=== PATIENT | male | born 1950 | race Caucasian/White ===

== ENCOUNTER 2017-01-18 08:59 | Day surgery (SDC) | payer BC, MEDICARE ==
[~2017-01-18] VITALS: Ht 193 cm; Wt 97.3 kg
[~2017-01-18 08:59] MED LIST: ASPI-586 PO; ATOR20TA PO; GLUC-113 PO; LACTATED RINGERS 1,000 ML IV SCH; LIDOCAINE/EPINEPHRINE 1%-1:100,000 (XYLOCAINE) 20ML VIAL ONE; LISI5TAB14 PO; METF500T4 PO; NAPR220T76 PO; OMEP20TA33 PO; SODIUM CHLORIDE FLUSH 3 ML SYR IV SCH; ceFAZolin 2,000 MG in SODIUM CHLORIDE VIAL (PF) 20 ML IV SCH
--- OUTSIDE RECORDS SUMMARY | 2017-01-18 09:06 | XMS REPORT ---
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 Info Not Available Non Drug Allergy Problems Problem Type Condition Code Onset Dates Condition Status Problem Dyslipidemia E78.5 Active Problem FH ischemic heart disease Z82.49 Active Problem ABARCA (dyspnea on exertion) R06.09 Active Assessment FH ischemic heart disease Z82.49 Active Assessment ABARCA (dyspnea on exertion) R06.09 Active Assessment Dyslipidemia E78.5 Active Medications Medication Code System Code Instructions Start Date End Date Status Dosage Aspir-81 [facility] [address]-98 81 MG Orally Once a day 1 tablet Vitamin B 12 [facility] [address] Orally 1 qd 2000mcg Prilosec OTC [facility] [address] 20 MG Orally Once a day 1/2 tablets CoQ-10 [facility] [address] 400 MG Orally Once a day 1 capsule with a meal Metformin HCl [facility] [address]-02 500 MG Orally Twice a day 1 tablet with meals Atorvastatin Calcium [facility] [address]-06 80 MG Orally Once a day 1/ 2 tablet Lipo-Flavonoid Plus NDC 0 1 qd not defined Glucosamine Chondroitin [facility] [address] Orally qd 1 tablet I Caps NDC 0 qd 1 capsule Procedures Procedure Coding System Code Date Office Consultation Level 3 CPT-4 27945 Jun 05, 2016 Vital Signs Date/Time: Jun 05, 2016 BMI 25.44 Index Weight 209 lbs Height 76 in Cardiac Monitoring Heart Rate 67 /min Oximetry 98% % Blood Pressure Diastolic 80 mm Hg Blood Pressure Systolic 130 mm Hg Results No Known Results Summary Purpose [employer] Submission
[2017-01-18 09:10] VITALS: BP 156/89
[2017-01-18] MEDS ORDERED: PROPOFOL 20 ML IV ONE (10:21)
[2017-01-18] MEDS ORDERED: ALFENTANIL 500 MCG/ML (ALFENTA) 5 ML AMP IV ONE ×2 (10:22)
[2017-01-18] MEDS ORDERED: MIDAZOLAM 2 MG/2 ML (VERSED) VIAL ONE (10:22)
[2017-01-18] MEDS ORDERED: METHYLENE BLUE 0.5% 50 MG/10 ML VIAL ONE (10:26)
[2017-01-18 12:07] VITALS: BP 145/89
[2017-01-18] MEDS ORDERED: METOCLOPRAMIDE 10 MG/2 ML (REGLAN) VIAL IV PRN (12:35)
[2017-01-18] MEDS ORDERED: ONDANSETRON 2 MG/ML (Z0FRAN) 2 ML VIAL IV PRN (12:35)
[2017-01-18] MEDS ORDERED: KETOROLAC 30 MG/ML (TORADOL) 1 ML VIAL IV PRN (12:35)
[2017-01-18] MEDS ORDERED: morphine INJ 4 MG/ML 1 ML SYRINGE IV PRN (12:35)
[2017-01-18 12:40] VITALS: BP 130/78
[2017-01-18 13:12] VITALS: BP 139/79
--- NOTE | 2017-01-18 14:48 | OPERATIVE REPORT ---
DATE OF OPERATION: 01/18/2017 PRE-OPERATIVE DIAGNOSIS: Malignant melanoma, left lower extremity POST-OPERATIVE DIAGNOSIS: Malignant melanoma, left lower extremity OPERATIVE PROCEDURE: 1. Left inguinal sentinel lymph node biopsy. 2. Wide local excision, left lower extremity melanoma. SURGEON: Guanakito Busby MD [employer]CR[employer]ET UNLOADER: LORY Dennis ANESTHESIA: Monitored anesthesia care with local INDICATIONS: The patient is a 66-year-old referred by Dr. Gonzalez after a recent biopsy of a skin lesion on his lateral left knee revealed a 0.8 mm melanoma. Wide local excision along with sentinel node biopsy was recommended and he presents today for this procedure. DESCRIPTION OF PROCEDURE: The patient was informed of the risks and benefits and agreed to proceed. He traveled to [place] for the sentinel node injection and returned for the procedure. He was administered preoperative IV antibiotics and taken to the operating room. He was laid supine on a standard operating table and administered IV sedation. When properly sedated, approximately 4 mL of methylene blue was injected in the skin around the biopsy site of his left lateral knee where the sutures were still intact. The area was massaged for 5 minutes to advance the dye through the lymphatics. The leg was then prepped and draped in the standard sterile fashion from below the knee up to above the groin. The Neoprobe was used to localize the highest activity in the left groin. This area was marked and then 1% lidocaine with epinephrine was injected in the skin. A slightly oblique incision was made measuring about 4 cm in length over that area. Sharp and blunt dissection was carried forth down to the underlying sentinel lymph node, which could be easily seen with the blue dye in it. Small lymphatic vessels were controlled with hemoclips and the node was dissected out. The lymphatic vessel at the inferior aspect was clamped and the node was removed and sent pathology. It was checked for its radioactivity prior to sitting it off. The lymphatic vessel was tied with 3-0 Vicryl. There was no other activity within the groin that was within 10% of the sentinel node. The wound was hemostatic. The subcutaneous tissue was reapproximated with interrupted 3-0 Vicryl and the skin was closed with subcuticular 4-0 Monocryl. Attention was then turned to the wide local excision. The skin was marked around the melanoma site to excise to 1 cm margins anteriorly and posteriorly with a vertical elliptical excision, which measured 2 cm x 6 cm. Lidocaine was injected in the skin below and around the excision site and the #15 blade scalpel was used to excise the skin circumferentially. The same scalpel was used to dissect down to the underlying fascia, and the skin and subcutaneous tissue were lifted off the fascia with the #15 blade. The specimen was marked with a short stitch superiorly and a long stitch posteriorly and removed. Hemostasis was achieved with a single 3-0 Vicryl figure-of-8 suture and gentle cautery in a couple of places. Once this was complete we closed the wound. The deep dermis was closed with interrupted 3-0 Vicryl and then the skin was closed with interrupted 3-0 Ethilon. Dressings were applied to both incisions. The patient tolerated the procedure without complications. Pathology is pending.
== END 2017-01-18 13:16 | disposition home or self-care (01) ==
LOC: ASC 08:59
PROVIDERS: ATTEND Surgery
DX: C43.72 Malignant melanoma of left lower limb, including hip (principal); E11.9 Type 2 diabetes mellitus without complications; I10 Essential (primary) hypertension; Z79.84 Long term (current) use of oral hypoglycemic drugs; Z79.82 Long term (current) use of aspirin
CPT/HCPCS: 11606; 12032; 38500; J0690; J2250; J7050; J7120; Q9968